=== PATIENT | female | born 1960 | race Caucasian/White ===

== ENCOUNTER 2017-11-01 23:34 | Emergency (ER) | payer OTHER ==
[2017-11-02 00:37] VITALS: BP 125/75; PULSE 75; TEMP 97.5; BMI 26.6
[2017-11-02] MEDS ORDERED: RANITIDINE HCL 150 MG TABLET (FP) PO ONE (01:00)
[2017-11-02] MEDS ORDERED: LIDOCAINE VISCOUS 2% ORAL/TOP 20 ML UNIT-DOSE CUP MM ONE (01:00)
[2017-11-02] MEDS ORDERED: MAG HYDROX/AL HYDROX/SIMETH 30 ML UNIT-DOSE CUP PO ONE (01:00)
--- NOTE | 2017-11-02 01:09 | PDOC ---
History of Present Illness - General Chief Complaint: Nausea/Vomiting Stated Complaint: PAIN Time Seen by Provider: 11/02/17 00:20 History Source: Patient, Family (Daughter) Exam Limitations: No Limitations - History of Present Illness Travel History: No Initial Comments: 11/02/17 01:03 This is a 57-year-old woman without significant past medical history of presents emergency Department with epigastric burning starting yesterday. Patient states she was seen by her primary doctor 2 days ago and was started on triple therapy for H. pylori infection. She denies any fevers, chills, shortness of breath nausea, vomiting. Past History - Past Medical History Allergies/Adverse Reactions: Allergies Allergy/AdvReac Type Severity Reaction Status Date / Time No Known Allergies Allergy Verified 11/02/17 00:35 Home Medications: Ambulatory Orders NK [No Known Home Medication] 11/02/17 - Suicide/Smoking/Psychosocial Hx Smoking History: Never smoked Have you smoked in the past 12 months: No Information on smoking cessation initiated: No Hx Alcohol Use: No Drug/Substance Use Hx: No Review of Systems - Review of Systems Able to Perform ROS?: Yes Is the patient limited [place] proficient: No Constitutional: No: Symptoms Reported HEENTM: No: Symptoms Reported Respiratory: No: Symptoms reported Cardiac (ROS): No: Symptoms Reported ABD/GI: Yes: See HPI : No: Symptoms Reported Musculoskeletal: No: Symptoms Reported Integumentary: No: Symptoms Reported Neurological: No: Symptoms reported *Physical Exam - Vital Signs Last Vital Signs Temp Pulse Resp BP Pulse Ox 97.5 F L 75 18 125/75 100 11/02/17 00:15 11/02/17 00:15 11/02/17 00:15 11/02/17 00:15 11/02/17 00:15 - Physical Exam General Appearance: Yes: Appropriately Dressed. No: Apparent Distress Neck: positive: Trachea midline, Supple Respiratory/Chest: positive: Lungs Clear, Normal Breath Sounds. negative: Respiratory Distress, Accessory Muscle Use Cardiovascular: positive: Regular Rhythm, Regular Rate. negative: Murmur Gastrointestinal/Abdominal: positive: Normal Bowel Sounds, Soft. negative: Tender Musculoskeletal: positive: Normal Inspection. negative: CVA Tenderness Extremity: positive: Normal Inspection Integumentary: positive: Normal Color, Dry, Warm Neurologic: positive: Alert, Normal Response ED Treatment Course - LABORATORY CBC & Chemistry Diagram: 11/02/17 01:31 11/02/17 01:31 - RADIOLOGY Radiology Studies Ordered: Category Date Time Status CHEST PA & LAT [RAD] Stat Radiology 11/02/17 00:59 Ordered Medical Decision Making - Medical Decision Making 11/02/17 01:05 A/P: 57-year-old woman with past medical history of H. pylori with epigastric burning Lungs clear to auscultation bilaterally RRR. No murmur, rub or gallop noted. Abdomen soft nontender nondistended. Although patient's symptoms are consistent with gastric ulcer, given patient's age I will rule out ACS, pneumonia. Maalox, Viscous Lidocaine, CBC, CMP, cardiac profile, chest x-ray, EKG 11/02/17 01:40 EKG sinus rhythm with rate of 73. Incomplete right bundle branch noted. No previous EKGs for comparison. 11/02/17 02:27 Chest x-rays read by me: Cardiac silhouette is within normal limits. Angles clear. No consolidations or infiltrates are noted. Laboratory testing is unremarkable. Patient is currently free of pain after receiving Maalox, lidocaine and Zantac. I'll discharge the patient home to continue her antibiotics with a recommendation to take Maalox with the medication. *DC/Admit/Observation/Transfer Diagnosis at time of Disposition: PUD (peptic ulcer disease) - Discharge Dispostion Disposition: HOME Condition at time of disposition: Fair Decision to Admit order: No - Referrals Referrals: Kike Vizcaino [Primary Care Provider] - - Patient Instructions Printed Discharge Instructions: DI for Peptic Ulcer Additional Instructions: Continue taking the antibiotics and Prilosec for your ulcer. Take Maalox as needed for burning in your stomach Keep well-hydrated. Return to emergency department for any chest pain, shortness of breath, abdominal pain or any other concerns. Contine tomando los antibiticos y Prilosec para estrada lcera. [place] Maalox segn sea necesario para quemar estrada estmago Mantente ching hidratado. Regrese a la aby de urgencias por cualquier dolor en el pecho, dificultad para respirar, dolor abdominal o cualquier otra preocupacin. - Post Discharge Activity
[2017-11-02] MEDS ORDERED: LIDOCAINE VISCOUS 2% ORAL/TOP 20 ML UNIT-DOSE CUP ONE (01:11)
[2017-11-02] MEDS ORDERED: RANITIDINE HCL 150 MG TABLET (FP) ONE (01:12)
[2017-11-02] MEDS ORDERED: MAG HYDROX/AL HYDROX/SIMETH 30 ML UNIT-DOSE CUP ONE (01:12)
[2017-11-02 01:42] LABS: BASO % 0.6 % (0-2.0); EOS % 3.1 % (0-4.5); HEMATOCRIT 35.4 % (32.4-45.2); HEMOGLOBIN 11.3 GM/dL (10.7-15.3); LYMPH % 36.6 % (8-40); MCH 25.4 pg (25.7-33.7); MCHC 31.8 g/dl (32.0-36.0); MEAN CELL VOLUME 79.7 fl (80-96); MONO % 7.9 % (3.8-10.2); NEUT % 51.8 % (42.8-82.8); PLATELET COUNT 262 K/MM3 (134-434); RBC 4.44 M/mm3 (3.60-5.2); WHITE BLOOD COUNT 7.1 K/mm3 (4.0-10.0)
[2017-11-02 01:54] LABS: INR 0.94 (0.82-1.09); PROTHROMBIN TIME (PATIENT) 10.6 SEC (9.7-13.0)
[2017-11-02 02:03] LABS: ALBUMIN 3.4 g/dl (3.4-5.0); ANION GAP 6 (8-16); BILIRUBIN,TOTAL 0.9 mg/dL (0.2-1.0); BLOOD UREA NITROGEN 7 mg/dL (7-18); CALCIUM 8.5 mg/dL (8.5-10.1); CHLORIDE 107 mmol/L (98-107); CO2 31 mmol/L (21-32); CREATININE 0.7 mg/dL (0.55-1.02); GLUCOSE,RANDOM 101 mg/dL (74-106); LIPASE 152 U/L (73-393); POTASSIUM 3.9 mmol/L (3.5-5.1); SGOT/AST 17 U/L (15-37); SGPT/ALT 25 U/L (12-78); SODIUM 144 mmol/L (136-145); TOT PROT 7.2 g/dl (6.4-8.2)
[2017-11-02 02:06] LABS: ALK PHOS 80 U/L (45-117)
--- NOTE | 2017-11-02 11:05 | EKG ---
Test Reason : Blood Pressure : / mmHG Vent. Rate : 073 BPM Atrial Rate : 073 BPM P-R Int : 194 ms QRS Dur : 100 ms QT Int : 394 ms P-R-T Axes : 056 030 020 degrees QTc Int : 434 ms POOR DATA QUALITY, INTERPRETATION MAY BE ADVERSELY AFFECTED NORMAL SINUS RHYTHM INCOMPLETE RIGHT BUNDLE BRANCH BLOCK NO PREVIOUS ECGS AVAILABLE Confirmed by LISETH SOTELO MD ([id number]) on 11/02/2017 11:05:02 AM Referred By: Confirmed By:LISETH SOTELO MD
== END 2017-11-02 02:37 | disposition home or self-care (01) ==
LOC: JER 23:34
DX: K27.3 Acute peptic ulcer, site unspecified, without hemorrhage or perforation (principal); B96.81 Helicobacter pylori [H. pylori] as the cause of diseases classified elsewhere
CPT/HCPCS: 36415; 71046-TC-FY; 80053; 82550; 83690; 84484; 85025; 85610; 93005; 93010; 99283-25

== ENCOUNTER 2023-10-26 18:11 | Emergency (ER) | payer OTHER ==
[2023-10-26 18:19] VITALS: BP 136/59; PULSE 77; RESP 18; BMI 27.0
[2023-10-26 18:20] VITALS: TEMP 98.5
[2023-10-26] MEDS ORDERED: ASPIRIN 81 MG CHEWABLE TABLETS ONE (20:16)
[2023-10-26] MEDS ORDERED: MAG HYDROX/AL HYDROX/SIMETH 30 ML UNIT-DOSE CUP ONE (20:16)
[2023-10-26] MEDS ORDERED: FAMOTIDINE 10 MG/ML VIAL IVPB ONE (20:16)
[2023-10-26] MEDS ORDERED: ACETAMINOPHEN INJECTION 100 ML IVPB ONE (20:16)
[2023-10-26] MEDS: MAG HYDROX/AL HYDROX/SIMETH 30 ML UNIT-DOSE CUP PO ONE (20:23)
[2023-10-26] MEDS: ASPIRIN 81 MG CHEWABLE TABLETS PO ONE (20:23)
[2023-10-26] MEDS: ACETAMINOPHEN 1000 MG/100 ML BAG IVPB ONE (20:23)
[2023-10-26 20:24] LABS: BASO % 0.4 % (0-2.0); EOS % 2.3 % (0-4.5); HEMATOCRIT 35.3 % (32.4-45.2); HEMOGLOBIN 11.6 GM/dL (10.7-15.3); LYMPH % 28.9 % (8-40); MCH 26.5 pg (25.7-33.7); MCHC 32.9 g/dl (32.0-36.0); MEAN CELL VOLUME 80.4 fl (80-96); MEAN PLT VOLUME 9.3 fl (7.5-11.1); MONO % 6.6 % (3.8-10.2); NEUT % 61.8 % (42.8-82.8); PLATELET COUNT 232 10^3/uL (134-434); RBC 4.39 M/mm3 (3.60-5.2); WHITE BLOOD COUNT 10.5 K/mm3 (4.0-10.0)
[2023-10-26] MEDS: FAMOTIDINE 20 MG/50 ML IVPB 20 MG/50 ML MG IVPB ONE (20:24)
[2023-10-26 20:30] LABS: INR 1.05 (0.83-1.09); PROTHROMBIN TIME (PATIENT) 11.8 SEC (9.7-13.0)
[2023-10-26 20:32] LABS: ACTIVATED PTT 33.8 SECONDS (25.2-36.5)
[2023-10-26 20:44] LABS: ALBUMIN 3.4 g/dl (3.4-5.0); CALCIUM 8.8 mg/dL (8.5-10.1)
[2023-10-26 20:46] LABS: BLOOD UREA NITROGEN 12.9 mg/dL (7-18); MAGNESIUM 2.1 mg/dL (1.8-2.4)
[2023-10-26 20:48] LABS: CREATININE 0.7 mg/dL (0.55-1.3)
[2023-10-26 20:49] LABS: BILIRUBIN,TOTAL 0.3 mg/dL (0.2-1); TOT PROT 6.9 g/dl (6.4-8.2)
[2023-10-26 20:52] LABS: N-TERMINAL BNP 41.6 pg/ml (5-125)
[2023-10-26] MEDS: LACTATED RINGERS SOLUTION 1000 ML INFUS.BAG IV ONE (21:04)
== END 2023-10-26 23:52 | disposition home or self-care (01) ==
LOC: JER 18:11
PROC: 3E033GC Introduction of Other Therapeutic Substance into Peripheral Vein, Percutaneous Approach (ICD-10-PCS; principal; 2023-10-26)
PROC: 3E033NZ Introduction of Analgesics, Hypnotics, Sedatives into Peripheral Vein, Percutaneous Approach (ICD-10-PCS; 2023-10-26)
DX: R07.81 Pleurodynia (principal)
CPT/HCPCS: 36415; 71045-TC-FY; 71275-TC; 80053; 83735; 83880; 84484; 85025; 85379; 85610; 85730; 93005; 93010; 99285-25; J0131; Q9967